=== PATIENT | female | born 1945 | race Caucasian/White ===

== ENCOUNTER 2016-11-09 16:33 | Emergency (ER) | payer MEDICARE, MEDICAID ==
[2016-11-09 16:46] VITALS: BP 106/68
--- NOTE | 2016-11-09 17:50 | UC ---
Shoulder Pain HPI - HPI Summary HPI Summary: 71 YO FEMALE PRESENTS WITH EXERTIONAL LEFT ARM PAIN X 2 DAYS SHE HAS HAD 3-4 EPISODES PAIN GOES AWAY WITH REST MAX DURATION OF PAIN A FEW (<5 MINUTES) NO CP OR SOB HAD LA 10/22 - History of Current Complaint Chief Complaint: UCUpperExtremity Stated Complaint: LEFT ARM PAIN, NAUSEA Time Seen by Provider: 11/09/16 16:37 Hx Obtained From: Patient Onset/Duration: Gradual Onset, Lasting Minutes Timing: Intermittent Episode Lasting - minutes x 3-4 Severity Initially: Moderate Severity Currently: None Location Of Pain: Is Discrete @ - left upper arm/squeezing Pain Intensity: 0 Pain Scale Used: 0-10 Numeric Character: Aching Aggravating Factor(s): Extension - Risk Factors Non-Orthopedic Risk Factor: Referred Pain from Chest - Allergies/Home Medications Allergies/Adverse Reactions: Allergies Allergy/AdvReac Type Severity Reaction Status Date / Time Iodinated Contrast Media Allergy Intermediate Rash Verified 11/09/16 16:46 [IV CONTRAST DYE] Omeprazole Allergy Intermediate Hives Verified 11/09/16 16:46 [From Prilosec OTC] Azithromycin [From Zithromax] Allergy Mild stomach Verified 11/09/16 16:46 Penicillins Allergy Hives Verified 11/09/16 16:46 Sulfamethoxazole Allergy TIA Verified 11/09/16 16:46 w/Trimethoprim [From Bactrim] novacaine Allergy Severe Swelling Uncoded 11/09/16 16:46 Home Medications: Home Medications Aspirin [Aspirin Adult Low Dose 81 MG] 81 mg PO DAILY 11/09/16 [History Confirmed 11/09/16] Atorvastatin* [Lipitor*] 40 mg PO QPM 11/09/16 [History Confirmed 11/09/16] Clopidogrel TAB* [Plavix TAB*] 75 mg PO DAILY 11/09/16 [History Confirmed ] Metoprolol Tartrate TAB* [Lopressor TAB*] 12.5 mg PO BID 11/09/16 [History Confirmed 11/09/16] Nitroglycerin TAB 0.4 MG* 0.4 mg SL Q5M PRN 11/09/16 [History Confirmed 11/09/16 ] Pantoprazole TAB (NF) [Protonix TAB (NF)] 40 mg PO DAILY 11/09/16 [History Confirmed 11/09/16] PMH/Surg Hx/FS Hx/Imm Hx Previously Healthy: No Cardiovascular History: Cardiac Disease, Hypertension Respiratory History: COPD, Pneumonia GI/ History: Ulcer - Surgical History Surgical History: Yes Surgery Procedure, Year, and Place: 2 c-sections. benign lypoma removed from back. HYSTERECTOMY. GASTROSCOPE. 10/22/16 [place] with multiple stents at [facility] - Family History Known Family History: Positive: None, Cardiac Disease, Hypertension, Diabetes - Social History Alcohol Use: None Substance Use Type: None Smoking Status (MU): Light Every Day Tobacco Smoker Type: Cigarettes Amount Used/How Often: < 1/2 ppd since 10/22/16 Length of Time of Smoking/Using Tobacco: 56 Years Have You Smoked in the Last Year: Yes Household Exposure Type: Cigarettes - Immunization History Most Recent Influenza Vaccination: Not the Season Review of Systems Constitutional: Negative Skin: Negative Eyes: Negative ENT: Negative Respiratory: Negative Cardiovascular: Negative Gastrointestinal: Negative Genitourinary: Negative Motor: Negative Neurovascular: Negative Musculoskeletal: Myalgia Neurological: Negative Psychological: Negative All Other Systems Reviewed And Are Negative: Yes Physical Exam Triage Information Reviewed: Yes Appearance: Well-Appearing, No Pain Distress, Well-Nourished Vital Signs: Initial Vital Signs Temp 98.4 F 11/09/16 16:40 Pulse 66 11/09/16 16:40 Resp 18 11/09/16 16:40 BP 106/68 11/09/16 16:40 Pulse Ox 96 11/09/16 16:40 Vital Signs Reviewed: Yes Eyes: Positive: Conjunctiva Clear ENT: Positive: Hearing grossly normal. Negative: Nasal congestion, Nasal drainage Neck: Positive: Supple, Nontender Respiratory: Positive: Lungs clear, Normal breath sounds, No respiratory distress Cardiovascular: Positive: RRR Musculoskeletal: Positive: ROM Intact, No Edema Neurological: Positive: Alert Psychological Exam: Normal Skin Exam: Normal Diagnostics - EKG Cardiac Rate: NL Ectopy: None ST Segment: : Normal - flipped Ts 1,AVL, 2 Shoulder Course/Dx - Course Course Of Treatment: Pts son was present as I discussed my concerns that she had unstable angina and should go to [facility]. Pt aware of risks but declined to sign AMA form - Differential Dx/Diagnosis Provider Diagnoses: Abnormal EKG. Exertional left arm pain. Concern that this is due to unstable angina. tobacco abuse. left AMA Discharge - Discharge Plan Condition: Guarded Disposition: AGAINST MEDICAL ADVICE Patient Education Materials: Angina (ED) Referrals: Tonya Montanez MD [Primary Care Provider] - Additional Instructions: Your EKG is abnormal- It shows signs of your heart not getting enough oxygen ( ischemia) THE FACT THAT YOUR LEFT ARM PAIN COMES WITH EXERTION CONCERNS ME IT MAY BE AN INDICATION OF ANGINA YOU NEED TO BE SEEN AT A HOSPITAL TO DETERMINE IF THIS ANGINA. BECAUSE YOU WERE RECENTLY TREATED AT [facility] FOR AN LA AND STENTS IT WOULD BE THE LOGICAL CHOICE FOR YOU TO GO THERE. WE HAVE OFFERED TO SEND YOU THERE SHOULD YOU CHANGE YOUR MIND YOU CAN GO THERE ANYTIME IF YOUR SYMPTOMS ARE FROM ANGINA RISKS INCLUDE: HEART FAILURE HEART ATTACK SUDDEN IF YOU DECIDE NOT TO GO I SUGGEST YOU TAKE A NITRO FOR THE EXERTIONAL LEFT ARM PAIN... CALL YOU [employer] TEACHER IN AM AND ARRANGE FOLLOW UP PIERCE call if symptoms worsen
== END 2016-11-09 18:20 | disposition short-term general hospital (02) ==
LOC: UCCORT 16:33
DX: R94.31 Abnormal electrocardiogram [ECG] [EKG] (principal); M79.602 Pain in left arm; I25.2 Old myocardial infarction; I10 Essential (primary) hypertension; J44.9 Chronic obstructive pulmonary disease, unspecified; Z72.0 Tobacco use; I51.9 Heart disease, unspecified
CPT/HCPCS: 93005; 99213; G0463

== ENCOUNTER 2017-05-27 10:17 | Emergency (ER) | payer MEDICARE, MEDICAID ==
[2017-05-27 10:41] VITALS: BP 133/72
--- NOTE | 2017-05-27 10:54 | UC ---
Respiratory Complaint HPI - HPI Summary HPI Summary: 72 year old with history of CAD, MD, COPD, pneumonia and tobacco use . c/o L side below breast pain x 2 weeks. History of MD in October. Pt states"it's not my heart. I am worried about pneumonia". Also history of COPD. Was sick in bed, and not able to come in 2 days ago. Had fever, and is weak. [ End ] - History of Current Complaint Chief Complaint: UCRespiratory Stated Complaint: WEAK/LEFT SIDE LUNG PAIN Time Seen by Provider: 05/27/17 10:37 Hx Obtained From: Patient ?: No Onset/Duration: Gradual Onset Timing: Constant Severity Initially: Moderate Severity Currently: Moderate Character: Cough: Productive Aggravating Factors: Exertion Alleviating Factors: Bronchodilator Associated Signs And Symptoms: Positive: Nasal Congestion - Risk Factors Cardiac Risk Factors: Hypertension, Smoking, Prior MD, CAD - Allergies/Home Medications Allergies/Adverse Reactions: Allergies Allergy/AdvReac Type Severity Reaction Status Date / Time Iodinated Contrast Media Allergy Intermediate Rash Verified 05/27/17 10:33 [IV CONTRAST DYE] Omeprazole Allergy Intermediate Hives Verified 05/27/17 10:33 [From Prilosec OTC] Azithromycin [From Zithromax] Allergy Mild stomach Verified 05/27/17 10:33 Penicillins Allergy Hives Verified 05/27/17 10:33 Sulfamethoxazole Allergy TIA Verified 05/27/17 10:33 w/Trimethoprim [From Bactrim] novacaine Allergy Severe Swelling Uncoded 05/27/17 10:33 Home Medications: Home Medications 2 Other Inhalers 05/27/17 [History] Cholesterol Medication DAILY 05/27/17 [History] PMH/Surg Hx/FS Hx/Imm Hx Previously Healthy: Yes Endocrine History: Dyslipidemia Cardiovascular History: Cardiac Disease, Hypertension, Myocardial Infarction Respiratory History: COPD - Surgical History Surgical History: Yes Surgery Procedure, Year, and Place: 2 c-sections. benign lypoma removed from back. HYSTERECTOMY. GASTROSCOPE. 10/22/16 [place] with multiple stents at [facility] - Family History Known Family History: Positive: None, Cardiac Disease, Hypertension, Diabetes - Social History Occupation: Unemployed Alcohol Use: None Substance Use Type: None Smoking Status (MU): Heavy Every Day Tobacco Smoker Type: Cigarettes Amount Used/How Often: 1/2 ppd since 10/22/16 Length of Time of Smoking/Using Tobacco: 56 Years Have You Smoked in the Last Year: Yes Household Exposure Type: Cigarettes Cessation Counseling: Patient Advised to Stop - Immunization History Most Recent Influenza Vaccination: Not the Season Review of Systems Constitutional: Fever, Chills, Fatigue ENT: Sinus Congestion, Sinus Pain/Tenderness Respiratory: Shortness Of Breath - chronic, Cough Motor: Weakness Neurological: Weakness Is Patient Immunocompromised?: No All Other Systems Reviewed And Are Negative: Yes Physical Exam Triage Information Reviewed: Yes Appearance: Well-Appearing, No Pain Distress, Well-Nourished Vital Signs: Initial Vital Signs Temp 99.2 F 05/27/17 10:36 Pulse 70 05/27/17 10:36 Resp 20 05/27/17 10:36 BP 133/72 05/27/17 10:36 Pulse Ox 99 05/27/17 10:36 Vital Signs Reviewed: Yes Eye Exam: Normal ENT Exam: Normal Dental Exam: Normal Neck exam: Normal Neck: Positive: 1 Respiratory Exam: Normal Respiratory: Positive: Chest non-tender, Lungs clear, Normal breath sounds, No respiratory distress, No accessory muscle use Cardiovascular Exam: Normal Abdominal Exam: Normal Musculoskeletal Exam: Normal Neurological Exam: Normal Psychological Exam: Normal Skin Exam: Normal UC Diagnostic Evaluation - Laboratory O2 Sat by Pulse Oximetry: 99 Respiratory Course/Dx - Course Course Of Treatment: EKG shows No acute concerns. Xray shows COPD. Had viral illness and now with increased cough / wheeze and use of CIRA. With recent complicated medical history advised to go to ED for further work up and declined. She appears stable, no respirtaory distress, VSS and will treat as COPD exac. F/u 1 day with PCP - Differential Dx/Diagnosis Differential Diagnosis/HQI/PQRI: Bronchitis, CHF, Laryngitis, Lower Resp Infection, Sinusitis Provider Diagnoses: COPD exacerbation Discharge - Discharge Plan Condition: Good Disposition: HOME Prescriptions: Doxycycline Hyclate [Morgidox [id number]] 100 mg PO BID #20 cap Methylprednisolone [Medrol Dosepak 4 MG*] 0 mg PO .SEE AMPARO INSTRUCTION #1 tab Patient Education Materials: COPD (Chronic Obstructive Pulmonary Disease) (ED) Referrals: Tonya Montanez MD [Primary Care Provider] - 1 Day
--- NOTE | 2017-05-27 11:09 | RAD ---
INDICATION: LEFT side chest pain. Weakness. COMPARISON: April 13, 2016 TECHNIQUE: Dual energy PA and routine lateral views of the chest were obtained. REPORT: Elevated lung volumes and both diffuse mild prominence of the interstitial markings and patchy rarefaction of the mid to upper lung zone interstitial markings. No focal pulmonary lesion, compelling alveolar consolidation, pleural effusion, pneumothorax. The heart, pulmonary vasculature, and mediastinal contours are unremarkable. No thoracic fractures evident. IMPRESSION: Stigmata of advanced obstructive lung disease and emphysema. No acute pulmonary or cardiac process evident.
== END 2017-05-27 11:40 | disposition home or self-care (01) ==
LOC: UCCORT 10:17
DX: J44.1 Chronic obstructive pulmonary disease with (acute) exacerbation (principal); N64.4 Mastodynia; R09.81 Nasal congestion; E78.5 Hyperlipidemia, unspecified; I25.2 Old myocardial infarction; I10 Essential (primary) hypertension; Z95.5 Presence of coronary angioplasty implant and graft; Z90.710 Acquired absence of both cervix and uterus; Z88.0 Allergy status to penicillin; Z88.2 Allergy status to sulfonamides; Z88.8 Allergy status to other drugs, medicaments and biological substances; Z88.4 Allergy status to anesthetic agent; Z88.1 Allergy status to other antibiotic agents; Z91.041 Radiographic dye allergy status; F17.210 Nicotine dependence, cigarettes, uncomplicated
CPT/HCPCS: 71046; 93005; 99212; G0463

== ENCOUNTER 2018-12-28 13:21 | Emergency (ER) | payer MEDICARE, MEDICAID ==
[2018-12-28 13:40] VITALS: BP 92/61
--- NOTE | 2018-12-28 13:52 | UC ---
Ear Complaint HPI - HPI Summary HPI Summary: 73-year-old female who complains of left earache which radiates down into her throat. She is a smoker. She is asking for an antibiotic. She has been ill for approximately 2-3 days. - History of Current Complaint Chief Complaint: UCGeneralIllness Stated Complaint: LEFT EAR THROAT CONGESTION Time Seen by Provider: 12/28/18 13:34 Hx Obtained From: Patient ?: No Onset/Duration: Gradual Onset Severity Initially: Mild Severity Currently: Mild Pain Intensity: 8 Aggravating Factors: Nothing Alleviating Factors: Nothing Associated Signs/Symptoms: Negative: URI Symptoms - Allergies/Home Medications Allergies/Adverse Reactions: Allergies Allergy/AdvReac Type Severity Reaction Status Date / Time azithromycin [From Zithromax] Allergy Stomach Verified 12/28/18 13:48 Cramps Iodinated Contrast Media Allergy Rash Verified 12/28/18 13:48 omeprazole Allergy Hives Verified 12/28/18 13:48 Penicillins Allergy Hives Verified 12/28/18 13:48 sulfamethoxazole Allergy See Comment Verified 12/28/18 13:48 novacaine Allergy Severe Swelling Uncoded 05/27/17 10:33 Home Medications: Home Medications Clopidogrel TAB* [Plavix TAB*] 75 mg PO DAILY 12/28/18 [History Confirmed ] PMH/Surg Hx/FS Hx/Imm Hx Previously Healthy: Yes Respiratory History: COPD, Asthma GI/ History: Ulcer - Surgical History Surgical History: Yes Surgery Procedure, Year, and Place: 2 c-sections. benign lypoma removed from back. HYSTERECTOMY. GASTROSCOPE. 10/22/16 OR with multiple stents at [facility] - Family History Known Family History: Positive: None, Cardiac Disease, Hypertension, Diabetes - Social History Alcohol Use: None Substance Use Type: None Smoking Status (MU): Heavy Every Day Tobacco Smoker Type: Cigarettes Amount Used/How Often: 1/2 ppd since 10/22/16 Length of Time of Smoking/Using Tobacco: 56 Years Have You Smoked in the Last Year: Yes Household Exposure Type: Cigarettes - Immunization History Most Recent Influenza Vaccination: Not the 2016/2016 Season Review of Systems All Other Systems Reviewed And Are Negative: Yes ENT: Positive: Ear Ache - Left earache which shoots sharp pain down to her throat Respiratory: Positive: Cough - Occasional nonproductive loose cough. Is Patient Immunocompromised?: No Physical Exam Triage Information Reviewed: Yes Appearance: Well-Appearing, No Pain Distress, Well-Nourished Vital Signs: Initial Vital Signs Temp 98.8 F 12/28/18 13:33 Pulse 69 12/28/18 13:33 Resp 18 12/28/18 13:33 BP 92/61 12/28/18 13:33 Pulse Ox 97 12/28/18 13:33 Vital Signs Reviewed: Yes Eyes: Positive: Conjunctiva Clear ENT: Positive: Hearing grossly normal, Pharynx normal, TMs normal, Uvula midline. Negative: Tonsillar swelling, Tonsillar exudate, Trismus, Muffled voice Neck: Positive: Supple, Nontender, No Lymphadenopathy Respiratory: Positive: Lungs clear, Normal breath sounds, No respiratory distress, No accessory muscle use - Mildly loose cough however breath sounds are clear. Cardiovascular: Positive: RRR, No Murmur, Pulses Normal, Brisk Capillary Refill Musculoskeletal Exam: Normal Neurological Exam: Normal Psychological Exam: Normal Skin Exam: Normal Ear Complaint Course/Dx - Course Course Of Treatment: Patient is comfortable here. I believe she has a very mild upper respiratory illness. She can alternate Tylenol and Motrin as directed and follow-up with her primary care provider as needed. Patient did request an antibiotic however I feel at this time she does not need one. - Differential Dx/Diagnosis Provider Diagnosis: Otalgia, left ear Discharge - Sign-Out/Discharge Documenting (check all that apply): Patient Departure All imaging exams completed and their final reports reviewed: No Studies - Discharge Plan Condition: Good Disposition: HOME Patient Education Materials: Upper Respiratory Infection (DC) Referrals: Laith Rendon MD [Primary Care Provider] - Additional Instructions: Increase fluids, rest, stop smoking, take Tylenol every 4 hours Motrin every 8 hours for ear pain. Follow-up with your primary care provider as scheduled or sooner if any worsening symptoms. - Billing Disposition and Condition Condition: GOOD Disposition: Home
== END 2018-12-28 13:54 | disposition home or self-care (01) ==
LOC: UCCORT 13:21
DX: H92.02 Otalgia, left ear (principal); J44.9 Chronic obstructive pulmonary disease, unspecified; Z79.01 Long term (current) use of anticoagulants; Z88.0 Allergy status to penicillin; Z88.2 Allergy status to sulfonamides; Z88.8 Allergy status to other drugs, medicaments and biological substances; Z88.4 Allergy status to anesthetic agent; Z88.1 Allergy status to other antibiotic agents; Z91.041 Radiographic dye allergy status; F17.210 Nicotine dependence, cigarettes, uncomplicated
CPT/HCPCS: 99211; G0463